=== PATIENT | female | born 1995 | race Two or more races ===

== ENCOUNTER → 2017-01-02 | Outpatient (REF) | payer OTHER | LOC: M LAB REF 09:03 | PROVIDERS: ATTEND Physician Assistant | DX: J02.9 Acute pharyngitis, unspecified (principal) ==

== ENCOUNTER → 2017-01-17 | Outpatient (REF) | payer OTHER | LOC: M SFHCLERA 13:19 | PROVIDERS: ATTEND Nurse Practitioner Family | DX: Z11.3 Encounter for screening for infections with a predominantly sexual mode of transmission (principal) ==

== ENCOUNTER → 2018-10-05 | Outpatient (CLI) | payer OTHER, SELFPAY ==
--- NOTE | 2018-10-05 18:16 | REP ---
Clinical: Anatomical evaluation. Comparison: None . Findings: Examination demonstrates a single live intrauterine in variable presentation. motion is identified by technologist. Placenta is noted posterior and grade grade zero without evidence for placenta previa or abruption. Amniotic fluid volume is normal. Cervix measures 3.4 cm in length and appears closed. Nuchal cord cannot be excluded. Gestational age by LMP 19 weeks 2 days with JEANMARIE 02/27/2019 . Gestational age by current measurements 19 weeks 6 days with JEANMARIE 02/23/2019 . FHR equals 144 beats per minute. BPD 4.5 cm 19 weeks 4 days HC 16.7 cm 19 weeks 2 days AC 15.6 cm 20 weeks 5 days FL 3.1 cm 819 weeks 4 day HL 3.1 cm 20 weeks 3 day HC/AC ratio 1.07 Estimated weight 331 grams ( 176 percentile). Anatomical assessment demonstrates normal structures including cranium, choroid plexus, cavum, cerebellum/posterior fossa, facial features, lungs, four-chamber heart/ventricular outflow tracts, diaphragm, stomach, cord insertion/three-vessel cord, kidneys/bladder, spine, and extremities. Impression: Single live intrauterine in variable presentation demonstrating appropriate interval growth. 2. Bilateral renal pelviectasis within normal range. 3. Nuchal cord cannot be excluded. 4. Remainder of the anatomical assessment is complete and normal. Electronically Signed by Tyson Ryan MD 10/05/2018 06:08 P
== END ==
LOC: M RAD 16:32
PROVIDERS: ATTEND Advanced Practice Midwife
DX: Z34.82 Encounter for supervision of other normal pregnancy, second trimester (principal); Z36.89 Encounter for other specified antenatal screening; Z3A.19 19 weeks gestation of pregnancy

== ENCOUNTER → 2018-12-29 | Outpatient (CLI) | payer OTHER ==
[2018-12-29 18:38] LABS: HEMATOCRIT 36.5 % (36.0-47.0); MEAN CORPUSCULAR HEMOGLOBIN 30.4 pg (27.0-33.0); MEAN CORPUSCULAR HGB CONC 32.9 g/dl (32.0-36.5); MEAN CORPUSCULAR VOLUME 92.4 fl (80.0-96.0); PLATELET COUNT, AUTOMATED 208 10^3/uL (150-450); RED BLOOD COUNT 3.95 10^6/uL (4.00-5.40); WHITE BLOOD COUNT 11.6 10^3/uL (4.0-10.0)
== END ==
LOC: M SMT 12:44
PROVIDERS: ATTEND Advanced Practice Midwife
DX: Z34.82 Encounter for supervision of other normal pregnancy, second trimester (principal)

== ENCOUNTER → 2019-01-17 | Outpatient (CLI) | payer OTHER ==
--- NOTE | 2019-01-17 19:22 | REP ---
Obstetric ultrasound, third trimester for size, date discrepancy: There is a single intrauterine gestation in a vertex presentation. There is movement and cardiac activity. The heart rate is 125 beats per minute. The placenta is left lateral. There is no previa or abruptio. The placenta is grade III. The amniotic fluid volume subjectively is normal. The amniotic fluid index is 18.8 (8 x 1 - 24.8). Gestational age by today's ultrasound is 34 weeks 0 days/JEANMARIE 02/28/2019. Gestational age by the first ultrasound is 34 weeks 5 days/JEANMARIE 02/23/2019. Gestational age by LMP is 34 weeks 1 day/JEANMARIE 02/27/2019. weight is 2471 grams/5 pounds, 7 ounces. This is the 56 percentile for 34 weeks 1 day. Umbilical artery Doppler assessment: S/D ratio 2.09 (2.00-3.00) Resistive Index 0.52 (0.59-0.75) Diastolic Velocity 13.9 (>10 cm/sec) Electronically Signed by Godwin Ibarra MD 01/17/2019 07:14 P
== END ==
LOC: M RAD 16:13
PROVIDERS: ATTEND Advanced Practice Midwife
DX: O26.843 Uterine size-date discrepancy, third trimester (principal); Z3A.34 34 weeks gestation of pregnancy

== ENCOUNTER → 2019-01-30 | Outpatient (REF) | payer OTHER | LOC: M LAB REF 13:10 | PROVIDERS: ATTEND Advanced Practice Midwife | DX: O99.89 Other specified diseases and conditions complicating pregnancy, childbirth and the puerperium (principal) ==

== ENCOUNTER 2019-02-03 11:48 | Outpatient (CLI) | payer OTHER ==
[~2019-02-03] VITALS: Ht 152.4 cm; Wt 74.0 kg
[2019-02-03 11:59] VITALS: BP 136/87
== END 2019-02-03 12:36 | disposition home or self-care (01) ==
LOC: M LDO 11:48
PROVIDERS: ATTEND Obstetrics & Gynecology
DX: O36.8130 Decreased fetal movements, third trimester, not applicable or unspecified (principal); O47.03 False labor before 37 completed weeks of gestation, third trimester; Z3A.36 36 weeks gestation of pregnancy
CPT/HCPCS: 59025; G0378; G0463

== ENCOUNTER 2019-02-12 03:07 | Inpatient (IN) | payer OTHER ==
[2019-02-12] VITALS (17 sets, daily range): BP systolic 124–184; BP diastolic 65–102
[~2019-02-12] VITALS: Ht 152.4 cm; Wt 75.7 kg
[2019-02-12] MEDS ORDERED: LACTATED RINGER'S 1000 ML IV STA (03:54)
[2019-02-12] MEDS ORDERED: LR 1,000 ML IV SCH (03:54)
[2019-02-12 04:01] LABS: HEMATOCRIT 32.6 % (36.0-47.0); MEAN CORPUSCULAR HEMOGLOBIN 29.4 pg (27.0-33.0); MEAN CORPUSCULAR HGB CONC 33.7 g/dl (32.0-36.5); MEAN CORPUSCULAR VOLUME 87.2 fl (80.0-96.0); PLATELET COUNT, AUTOMATED 148 10^3/uL (150-450); RED BLOOD COUNT 3.74 10^6/uL (4.00-5.40); WHITE BLOOD COUNT 9.3 10^3/uL (4.0-10.0)
[2019-02-12] MEDS ORDERED: FENTANYL 2MCG/ML ROPIVACAINE 0.2% IN 0.9% NACL 100ML IVBAG As Ordered ONE (04:05)
[2019-02-12] MEDS ORDERED: OXYTOCIN 30 UNITS IN 0.9% NaCl 500ML IV BAG (J2590) As Ordered ONE (04:05)
[2019-02-12 04:35] LABS: ALT/SGPT 14 U/L (12-78); BILIRUBIN,TOTAL 0.2 MG/DL (0.2-1.0); GLOMERULAR FILTRATION RATE > 60.0 (>60); LDH LACTATE DEHYDROGENASE 202 U/L (84-246); URIC ACID 4.4 MG/DL (2.6-6.0)
[2019-02-12] MEDS ORDERED: ONDANSETRON 4MG/2ML VIAL (J2405) IV PRN (05:15)
[2019-02-12] MEDS ORDERED: OXYTOCIN DRIP 30 UNITS in APPROPRIATE DILUENT 1 EA IV ONE (05:15)
[2019-02-12] MEDS ORDERED: ACETAMINOPHEN TAB 650MG DOSE (2X325MG) PO PRN (05:15)
[2019-02-12] MEDS ORDERED: DOCUSATE SODIUM 100 MG CAP PO PRN (05:15)
[2019-02-12] MEDS ORDERED: MEASLES,MUMPS,RUBELLA VACCINE INJ (MMR-II) (90707) SC SCH (05:15)
[2019-02-12] MEDS ORDERED: ACETAMINOPHEN 500 MG TAB PO PRN (05:15)
[2019-02-12] MEDS ORDERED: RHOGAM 300 MCG (1500 IU) INJ (J2790) IM SCH (05:15)
[2019-02-12] MEDS ORDERED: METHYLERGONOVINE MALEATE 0.2 MG TAB PO PRN (05:15)
[2019-02-12] MEDS ORDERED: LIDOCAINE 1% MDV 20ML VIAL INFIL ONE (05:15)
[2019-02-12] MEDS ORDERED: DIBUCAINE 1% OINTMENT 30GM TOP PRN (05:15)
[2019-02-12] MEDS: IBUPROFEN 600 MG TAB PO PRN (05:40)
--- NOTE | 2019-02-12 08:46 | HPE ---
DATE OF ADMISSION: 02/12/2019 23-year-old, G2, P1 female at 37 and 6/7 weeks gestation by last menstrual period and consistent with 7 week ultrasound, estimated date of confinement (EDC) is 02/23/2019, presents with leaking fluid from vagina at 2:45 a.m. on the morning of admission. She began to contract intensely every 2 to 3 minutes. Denied vaginal bleeding. There is good movement. COURSE: The patient initiated care at 7 weeks gestation, 07/11/2018. Her first trimester blood pressure was 118/76. course was unremarkable. OBSTETRICAL HISTORY: 1. March 2012, 39 week vaginal delivery, 6 pounds 5 ounces male , no complications. MEDICAL HISTORY: None. ALLERGIES: None. SURGICAL HISTORY: None. SOCIAL HISTORY: The patient denies cigarettes, alcohol or drug use. She lives in [place]. FAMILY HISTORY: Noncontributory. PHYSICAL EXAMINATION: Blood pressure 184/101, pulse 84. Head and neck exam normal. Lungs clear. Heart with regular rate and rhythm. Abdomen is nontender, gravid. heart tones category 1. Sterile vaginal examination: 5 cm, 100%, -1, posterior, soft, vertex, grossly ruptured, clear fluid. Contractions every 2 minutes, palpate strong. Extremities are nontender. LABORATORIES: Blood type O positive, Rubella immune, RPR nonreactive. Diabetes screen 89, GBS negative 01/30/2019. ASSESSMENT: 23-year-old G2, P1 female at 37 and 6/7 weeks gestation who presents in active labor with ruptured membranes. PLAN: The patient was admitted on 02/12/2019, elevated blood pressure maybe due to pain. We will get the patient's pain under control with epidural if possible and reassess blood pressure.
[2019-02-12] MEDS: PRENATAL VITAMINS CHEWABLE TABLET PO SCH (09:21)
[2019-02-12] MEDS: IBUPROFEN 800 MG TAB PO PRN (17:16)
[2019-02-13] MEDS: IBUPROFEN 800 MG TAB PO PRN ×2 (01:46→12:35)
[2019-02-13 06:38] VITALS: BP 122/70
[2019-02-13] MEDS: PRENATAL VITAMINS CHEWABLE TABLET PO SCH (08:23)
--- NOTE | 2019-02-13 13:53 | DN ---
DATE OF DELIVERY: 02/12/2019 PREDELIVERY DIAGNOSES: 37-6/7 weeks' gestation, ruptured membranes, labor. POSTDELIVERY DIAGNOSIS: Delivered. PROCEDURE: Spontaneous vaginal delivery. CELLULAR BIOLOGIST: Matthew Workman MD ANESTHESIA: None. ESTIMATED BLOOD LOSS: 300 mL. FINDINGS: 7-pound 0-ounce male . scores 8 and 9. DELIVERY SUMMARY: After a 5-minute second stage, the patient had spontaneous delivery of a 7-pound 0-ounce male , scores of 8 and 9, with no delivery anesthesia. Nuchal cord times one was delivered. The shoulders delivered with ease. The infant was handed to the mother and cried. Shortly thereafter, the cord was doubly clamped and cut. The placenta delivered spontaneously and appeared to be intact. The patient received intravenous (IV) Pitocin after delivery of the placenta. A small second-degree perineal laceration was repaired with 2-0 chromic under local anesthesia in the usual fashion. Sponge and needle counts were correct.
[2019-02-13 18:00] VITALS: BP 135/68
[2019-02-13] MEDS: IBUPROFEN 600 MG TAB PO PRN (22:15)
[2019-02-14 06:00] VITALS: BP 126/69
[2019-02-14] MEDS: PRENATAL VITAMINS CHEWABLE TABLET PO SCH (07:56)
[2019-02-14] MEDS: IBUPROFEN 600 MG TAB PO PRN (07:57)
== END 2019-02-14 11:36 | disposition home or self-care (01) | DRG 560 ==
LOC: M LDO 03:07 → M LDI 03:38 → M OBS 07:37
PROVIDERS: ADMIT Specialist; ATTEND Specialist
PROC: 10E0XZZ Delivery of Products of Conception, External Approach (ICD-10-PCS; principal; 2019-02-12)
PROC: 0KQM0ZZ Repair Perineum Muscle, Open Approach (ICD-10-PCS; 2019-02-12)
DX: O69.82X0 Labor and delivery complicated by other cord entanglement, without compression, not applicable or unspecified (principal); O70.1 Second degree perineal laceration during delivery; Z37.0 Single live birth; Z3A.37 37 weeks gestation of pregnancy

== ENCOUNTER 2021-03-04 06:12 | Day surgery (SDC) | payer OTHER ==
[~2021-03-04] VITALS: Ht 152.4 cm; Wt 54.4 kg
[~2021-03-04 06:12] MED LIST: ACETAMINOPHEN 650 MG SUPP PR ONE; LR 1,000 ML IV ONE
[2021-03-04 06:50] LABS: HEMATOCRIT 39.8 % (36.0-47.0); HEMOGLOBIN 13.5 g/dl (12.0-15.5); MEAN CORPUSCULAR HEMOGLOBIN 29.9 pg (27.0-33.0); MEAN CORPUSCULAR HGB CONC 33.9 g/dl (32.0-36.5); MEAN CORPUSCULAR VOLUME 88.1 fl (80.0-96.0); PLATELET COUNT, AUTOMATED 232 10^3/uL (150-450); RED BLOOD COUNT 4.52 10^6/uL (4.00-5.40); WHITE BLOOD COUNT 5.8 10^3/uL (4.0-10.0)
[2021-03-04] MEDS ORDERED: fentaNYL 100 MCG/2 ML INJECTION (J3010) As Ordered ONE ×2 (07:03→09:02)
[2021-03-04] MEDS ORDERED: ONDANSETRON 4MG/2ML VIAL As Ordered ONE ×2 (07:03→09:02)
[2021-03-04] MEDS ORDERED: SUGAMMADEX SODIUM 500 MG/5 ML VIAL (BRIDION) As Ordered ONE (07:03)
[2021-03-04] MEDS ORDERED: ACETAMINOPHEN 1000MG 100ML IV BTL (OFIRMEV) (J0131 PER 10MG) As Ordered ONE (07:03)
[2021-03-04] MEDS ORDERED: dexameTHASONE 4 MG/ML 1ML VIAL (J1100 PER 1MG) As Ordered ONE (07:03)
[2021-03-04] MEDS ORDERED: KETOROLAC 60MG 2ML VIAL As Ordered ONE (07:03)
[2021-03-04] MEDS ORDERED: propofoL 200 MG/20 ML VIAL As Ordered ONE (07:03)
[2021-03-04] MEDS ORDERED: ROCURONIUM BROMIDE 50 MG/5 ML VIAL As Ordered ONE (07:03)
[2021-03-04] MEDS ORDERED: LIDOCAINE 2% 100MG/5ML SDV (FOR ANES.) As Ordered ONE (07:03)
[2021-03-04] MEDS ORDERED: LIDOCAINE 5% OINT 30GM TUBE As Ordered ONE (07:04)
[2021-03-04] MEDS ORDERED: MIDAZOLAM INJ 2MG/2ML VIAL (J2250 PER 1MG) As Ordered ONE (07:04)
[2021-03-04] MEDS ORDERED: ACETAMINOPHEN 650 MG SUPP As Ordered ONE (07:12)
[2021-03-04] MEDS ORDERED: BUPIVACAINE HCL 0.5% 10ML VIAL As Ordered ONE (07:12)
[2021-03-04 07:16] LABS: BLOOD UREA NITROGEN 10 MG/DL (7-18); CALCIUM LEVEL 9.3 MG/DL (8.5-10.1); CARBON DIOXIDE LEVEL 30 MEQ/L (21-32); CHLORIDE LEVEL 108 MEQ/L (98-107); CREATININE FOR GFR 0.83 MG/DL (0.55-1.30); GLOMERULAR FILTRATION RATE > 60.0 (>60); GLUCOSE, FASTING 88 MG/DL (70-100); POTASSIUM SERUM 4.1 MEQ/L (3.5-5.1); SODIUM LEVEL 142 MEQ/L (136-145)
[2021-03-04 07:17] LABS: HCG, SERUM QUALITATIVE NEGATIVE (NEGATIVE)
[2021-03-04] MEDS ORDERED: SCOPOLAMINE 1MG TRANSDERMAL PATCH TOP ONE (07:35)
[2021-03-04] MEDS ORDERED: oxyCODONE 5MG TAB PO PRN (09:05)
[2021-03-04] MEDS ORDERED: LR 1,000 ML IV SCH (09:05)
[2021-03-04] MEDS ORDERED: ONDANSETRON 4MG/2ML VIAL IV PRN (09:05)
[2021-03-04] MEDS: fentaNYL 100 MCG/2 ML INJECTION (J3010) IV PRN ×2 (09:08→09:16)
[2021-03-04 10:02] VITALS: BP 134/81
--- NOTE | 2021-03-16 09:32 | RO ---
OPERATIVE NOTE DATE OF OPERATION: 03/04/2021 PREOPERATIVE DIAGNOSIS: Satisfied parity. POSTOPERATIVE DIAGNOSIS: Satisfied parity, stage 1 endometriosis. OPERATION PROPOSED: Operative laparoscopy, bilateral salpingectomy, hysteroscopy, D&C, removal of IUCD. OPERATION PERFORMED: Operative laparoscopy, bilateral salpingectomy, removal of IUCD. SURGEON: Albino Yi MD BIOMETRICIAN: Jhon Sosa, DO for extraction, retraction and visualization without which the procedure could not be completed. ANESTHESIA: General plus local anesthetic for intraperitoneal procedures. ESTIMATED BLOOD LOSS: Less than 25 mL DESCRIPTION OF PROCEDURE: After adequate timeout, prepped and draped in the lithotomy position, Phelps catheter in the bladder draining clear urine, acetaminophen suppository 1300 mg per rectum. Sequentials in place, antibiotics not required. A weighted speculum was placed in the vagina, a single-tooth tenaculum on the anterior lip of the cervix. We were able to visualize the IUCD strings and just pull the IUCD, sent it off to pathology under separate, put a uterine elevator into the endocervical canal. Reprepping and draping. A small subumbilical incision was made. Veress needle was applied, 3.8 liters of CO2 to flow rate of 3 liters per minute and a pressure of 14. Direct entry into the abdomen, no evidence of perforation, hemorrhage or bleeding. Panoramic review, the right upper quadrant was normal, the left upper quadrant was normal. The uterus was mobilized, anteverted, anteflexed. The ureters were identified bilaterally. The appendiceal area was noted to be normal. On the right just between the ureter and the ovary was a couple of small spots of endometriosis. However, they were not of any significance and the patient has never complained of any issues. We put a 3 mm port on the right side, a 5 mm port on the left side and then with the LigaSure, we were able to excise off the right tube from the cornua to the fimbriated end and was sent off to pathology under separate cover. We did a similar procedure on the opposite side, removing the completed tube from the cornua to the fimbriated end. We irrigated. Finding no evidence of bleeding again reviewed. There was a minimal amount of endometriosis. Otherwise everything else was normal. With instrument and pad counts correct, we deflated to 4 mm pressure, removed the two lateral ports, removed the main stem port, put a deep stitch in the umbilical area, superficial stitches, Marcaine 0.25% all three sites. Steri-Strips applied. Going below, we removed the Phelps catheter. We removed and uterine elevator and the patient was sent to recovery in good condition. Stephanie Montgomery OB
== END 2021-03-04 11:00 | disposition home or self-care (01) ==
LOC: M SDC 06:12
PROVIDERS: ATTEND Obstetrics & Gynecology
DX: Z30.2 Encounter for sterilization (principal); K21.9 Gastro-esophageal reflux disease without esophagitis; F41.9 Anxiety disorder, unspecified; F17.290 Nicotine dependence, other tobacco product, uncomplicated
CPT/HCPCS: 36415; 58301; 58661; 80048; 84703; 85027; 88302; J0131; J1100; J1885; J2250; J2405; J3010

== ENCOUNTER → 2021-04-14 | Outpatient (REF) | LOC: M EMP 15:58 | PROVIDERS: ATTEND Family Medicine | DX: Z20.822 Contact with and (suspected) exposure to COVID-19 (principal) ==

== ENCOUNTER → 2025-03-28 | Outpatient (RCR) | LOC: M EMPSSV 03-18 13:50 | PROVIDERS: ATTEND Family Medicine | DX: Z20.828 Contact with and (suspected) exposure to other viral communicable diseases (principal) ==